=== PATIENT | male | born 1985 | race African-American/Black ===

== ENCOUNTER 2017-04-01 03:23 | Emergency (ER) | payer SELFPAY ==
--- NOTE | 2017-04-01 03:30 | ER Document Report ---
ED Wound <STEVE ODELL - Last Filed: 04/01/17 04:27> - General Mode of Arrival: Medic Information source: Patient, Law Enforcement - with IVC paperwork - HPI Patient complains to provider of: Laceration Occurred: Just prior to arrival Onset/Duration: Sudden Capillary refill: < 3 seconds Sensations intact: Yes Distal pulses present: Yes <DEVENDRA LYNN - Last Filed: 04/01/17 05:05> <TITUS KEY - Last Filed: 04/02/17 12:54> <DINA MAC - Last Filed: 04/02/17 13:14> - General Stated Complaint: IVC WITH PAPERS Notes: Patient is a 31-year-old male that presents to the emergency department today with complaints of a self-inflicted laceration to the left forearm. Patient does admit to EtOH usage tonight. Patient states that he was in an argument with his fiance and he cut himself with a pocket knife. Patient states that his mrnttn-dc-anw is living with him in his house and she is not helping to pay the bills which began an argument with his fiance. Patient denies any suicidal or homicidal ideation. Patient has never been diagnosed with psychiatric disorders in the past. (DEVENDRA LYNN) Past Medical History - General Information source: Patient - Social History Smoking Status: Never Smoker Cigarette use (# per day): No Frequency of alcohol use: Heavy Drug Abuse: None Lives with: Family Family History: Reviewed & Not Pertinent - Medical History Medical History: Negative Surgical Hx: Negative <DEVENDRA LYNN - Last Filed: 04/01/17 05:05> Review of Systems - Review of Systems Constitutional: No symptoms reported EENT: No symptoms reported Cardiovascular: No symptoms reported Respiratory: No symptoms reported Gastrointestinal: No symptoms reported Genitourinary: No symptoms reported Male Genitourinary: No symptoms reported Musculoskeletal: No symptoms reported Skin: See HPI, Other - laceration to left forearm Hematologic/Lymphatic: No symptoms reported Neurological/Psychological: No symptoms reported -: Yes All other systems reviewed and negative <DEVENDRA LYNN - Last Filed: 04/01/17 05:05> Physical Exam <STEVE ODELL - Last Filed: 04/01/17 04:27> <DEVENDAR LYNN - Last Filed: 04/01/17 05:05> <TITUS KEY - Last Filed: 04/02/17 12:54> <DINA MAC - Last Filed: 04/02/17 13:14> - Vital signs Vitals: Temp Pulse Resp BP Pulse Ox 98.1 F 110 H 18 168/100 H 100 04/01/17 03:33 04/01/17 03:33 04/01/17 03:33 04/01/17 03:33 04/01/17 03:33 - Notes Notes: Physical Exam: General: Alert, appears well. HEENT: Normocephalic. Atraumatic. PERRLA. Extraocular movements intact. Oropharynx clear. Neck: Supple. Respiratory: No respiratory distress. Abdominal: Normal Inspection. No distension. Extremities: Moves all four extremities. Neurological: Cranial nerves II-XII grossly intact bilaterally. Normal cognition. AAOx4. Normal speech. Psychological: Agitated Skin: Moderately deep 12 cm laceration to left forearm, good digit movement distally. (DEVENDRA LYNN) Course <STEVE ODELL - Last Filed: 04/01/17 04:27> - Laboratory Result Diagrams: 04/01/17 04:20 04/01/17 04:20 <DEVENDRA LYNN - Last Filed: 04/01/17 05:05> - Laboratory Result Diagrams: 04/01/17 04:20 04/01/17 04:20 <TITUS KEY - Last Filed: 04/02/17 12:54> - Laboratory Result Diagrams: 04/01/17 04:20 04/01/17 04:20 <DINA MAC - Last Filed: 04/02/17 13:14> - Re-evaluation Re-evalutation: 04/01/17 04:08 Patient presents emergency department self-inflicted 5-1/2 inch laceration to his left upper extremity has been placed on papers by menstrual body by the police. States that he's been having difficulty with his gvubpm-iu-bpa who is living with him not paying any bills in his fiance got into an argument tonight he took out a pocket knife and sliced his left arm. The wkntii-cj-ujn called and the patient was taken into custody. He denies any history of suicide attempt or overdose substance abuse issues in the past she's not been diagnosed according to him with any psychiatric illnesses. Also does not a family history of psychiatric illness. On examination well-appearing nontoxic says he is not suicidal or homicidal now. His normal stable mental examination with normal physical examination. 5 1/2 inch laceration to the left forearm repaired with 26interrupted sutures complex repair. Antibiotic ointments tetanus and dressing was applied. (STEVE ODELL) - Vital Signs Vital signs: Temp Pulse Resp BP Pulse Ox 97.8 F 60 16 142/87 H 98 04/02/17 07:54 04/02/17 07:54 04/02/17 07:54 04/02/17 07:54 04/02/17 07:54 - Laboratory Laboratory results interpreted by me: 04/01/17 04/01/17 04/01/17 04:20 04:20 05:15 RBC 5.93 H RDW 14.6 H Sodium 149.3 H Chloride 111 H Carbon Dioxide 19 L Glucose 115 H Direct Bilirubin 0.5 H Total Protein 8.3 H Urine Blood SMALL H Salicylates < 1.0 L Acetaminophen < 10 L - EKG Interpretation by Me Additional EKG results interpreted by me: 04/01/17 04:27 EKG interpreted by myself to reveal sinus rhythm at [address] elevation probably early repolarization. I don't appreciate any acute ST segment elevation or depression and is of concern currently. (STEVE ODELL) Procedures - Laceration/Wound Repair Left Upper Arm Time completed: 04:00 Wound's Depth, Shape: Into muscle, Linear Laceration pre-procedure: Sterile drapes applied, Shur-Clens applied Anesthetic type: 1% Lidocaine w/epi Wound explored: Clean, No foreign body removed Irrigated w/ Saline (mLs): 1,000 Wound Repaired With: Sutures Suture Size/Type: 5:0, Ethilon Number of Sutures: 26 Layer Closure?: Yes Post-procedure wound care: Sterile dressing applied Post-procedure NV exam normal: Yes Complications: No <STEVE ODELL - Last Filed: 04/01/17 04:27> Discharge <STEVE ODELL - Last Filed: 04/01/17 04:27> <DEVENDRA LYNN - Last Filed: 04/01/17 05:05> <TITUS KEY - Last Filed: 04/02/17 12:54> <DINA MAC - Last Filed: 04/02/17 13:14> - Discharge Clinical Impression: Suicidal ideation, self-inflicted laceration, 5-1/2 inch laceration with repair Condition: Stable Disposition: HOME, SELF-CARE Additional Instructions: CHRONIC ALCOHOLISM and ALCOHOL ABUSE: Your evaluation reveals evidence of chronic alcoholism, an addiction to alcohol. The tendency to alcoholism may be inherited. Chronic use of alcohol weakens muscles, causes fatty deposits in the liver , damages the stomach, makes you more prone to infections, and can cause defects in unborn children. In the long run, brain atrophy and cirrhosis of the liver result. You are also at greater risk for certain types of cancer, such as cancer of the mouth, throat, stomach, and liver. Counselling services are available to help you. In-hospital treatment programs often help. Support groups such as Alcoholics Anonymous can be very useful in beating this addiction. Your physician can make a referral for you. As alcoholics often are prone to other addictions, you should discuss your use of any other medications with the doctor. DEPRESSION: Your evaluation reveals that you have mental depression. While symptoms may be vague, they often include disturbance of sleep, fatigue, loss of appetite , and general loss of interest in life. While depression may be a side effect of drugs, or a reaction to a major change in your life, many cases have no known cause. If depression is acute, and related to a major loss in your life, you can expect it to clear completely with time. If you have been depressed a long time , are prone to repeated bouts of depression or low mood, or have been thinking of suicide, get help. Depression can be treated with anti-depressant medication and counselling. Long-term depression will often take a few weeks to clear, even with appropriate medication. Follow-up care is important. SUICIDAL IDEATION: Suicidal ideation is a common medical term for thoughts about suicide, which may be as detailed as a formulated plan, without the suicidal act itself. Although most people who undergo suicidal ideation do not commit suicide, some go on to make suicide attempts. The range of suicidal ideation varies greatly from fleeting to detailed planning, role playing, and unsuccessful attempts. While thoughts about suicide are common, most people do not carry out serious actions to commit suicide. Based upon your evaluation and discussion with you, we do not believe you are currently at risk to act upon your thoughts of suicide. You have agreed to return to the Emergency Department, at any time , if you feel inclined to act upon your suicidal thoughts. FOLLOW-UP CARE: You have been referred to [facility] to receive an evaluation for substance abuse and treatment within the next two days. If you experience worsening or a significant change in your symptoms, notify the physician immediately or return to the Emergency Department at any time for re-evaluation. Referrals: [facility] [Outside] - 04/11/17 Scribe Attestation: 04/01/17 04:10 I personally performed the services described in the documentation reviewed the documentation recorded by my scribe in my presence and it accurately and completely records my words and actions (STEVE ODELL) Scribe Documentation - Scribe Written by Carl:: carl Yañez, [id number] 04/01/2017 acting as scribe for :: Donavan <DEVENDRA LYNN - Last Filed: 04/01/17 05:05>
[2017-04-01] MEDS ORDERED: TETANUS IMMUNE GLOBULIN INJ/PF 250 UNIT DISP.SYRIN IM ONE (03:38)
[2017-04-01] MEDS ORDERED: LIDOCAINE 1%/EPINEPHRINE INJ 20 ML VIAL INJ ONE (03:38)
[2017-04-01] MEDS ORDERED: NICOTINE 21 MG/24 HR PATCH.TD24 TD ONE (04:10)
[2017-04-01] MEDS ORDERED: CEPHALEXIN 500 MG CAPSULE PO ONE ×2 (04:25→22:54)
[2017-04-01 04:32] LABS: ABSOLUTE LYMPHOCYTES (AUTO) 1.3 10^3/uL (0.5-4.7); ABSOLUTE MONOCYTES (AUTO) 0.3 10^3/uL (0.1-1.4); ABSOLUTE NEUT (AUTO) 4.3 10^3/uL (1.7-8.2); BASOPHILS % (AUTO) 0.6 % (0-2); EOSINOPHILS % (AUTO) 0.3 % (0-6); HEMATOCRIT 50.9 % (37.9-51.0); HEMOGLOBIN 16.9 g/dL (13.5-17.0); HGB HCT DIFFERENCE -0.2; LYMPHOCYTES % (AUTO) 22.2 % (13-45); MEAN CORPUSCULAR HEMOGLOBIN 28.5 pg (27.0-33.4); MEAN CORPUSCULAR HGB CONC 33.3 g/dL (32.0-36.0); MEAN CORPUSCULAR VOLUME 86 fl (80-97); MONOCYTES % (AUTO) 5.5 % (3-13); RED BLOOD COUNT 5.93 10^6/uL (4.35-5.55); RED CELL DISTRIBUTION WIDTH 14.6 % (11.5-14.0); SEGMENTED NEUTROPHILS % (AUTO) 71.4 % (42-78)
[2017-04-01 04:53] LABS: ALANINE AMINOTRANSFERASE 32 U/L (21-72); ALBUMIN 4.6 g/dL (3.5-5.0); ALCOHOL 196 mg/dL (NONE DETECTED); ALKALINE PHOSPHATASE 80 U/L (38-126); ANION GAP 19 (5-19); ASPARTATE AMINO TRANSFERASE 22 U/L (17-59); BILIRUBIN,DIRECT 0.5 mg/dL (0.0-0.4); BILIRUBIN,TOTAL 0.7 mg/dL (0.2-1.3); BLOOD UREA NITROGEN 8 mg/dL (7-20); CALCIUM 9.7 mg/dL (8.4-10.2); CARBON DIOXIDE 19 mmol/L (22-30); CHLORIDE 111 mmol/L (98-107); CREATININE RESULT 0.85 mg/dL (0.52-1.25); GLUCOSE 115 mg/dL (75-110); POTASSIUM 4.5 mmol/L (3.6-5.0); SODIUM 149.3 mmol/L (137-145); TOTAL PROTEIN 8.3 g/dL (6.3-8.2)
[2017-04-01 05:32] LABS: APPEARANCE,URINE CLEAR; BILIRUBIN,URINE NEGATIVE (NEGATIVE); GLUCOSE, URINE NEGATIVE (NEGATIVE); KETONES,URINE NEGATIVE (NEGATIVE); LEUKOCYTE ESTERASE,URINE NEGATIVE (NEGATIVE); NITRITE,URINE NEGATIVE (NEGATIVE); PROTEIN,URINE NEGATIVE (NEGATIVE); URINE SPECIFIC GRAVITY 1.004; UROBILINOGEN,URINE NEGATIVE mg/dL (<2.0)
[2017-04-01] MEDS ORDERED: ACETAMINOPHEN 325 MG TABLET PO ONE (05:39)
[2017-04-01 05:45] LABS: URINE BARBITURATES SCREEN NEGATIVE; URINE METHADONE SCREEN NEGATIVE; URINE OPIATES LOW NEGATIVE; URINE PHENCYCLIDINE SCREEN NEGATIVE
--- NOTE | 2017-04-01 10:01 | ER Document Report ---
Doctor's Note Notes: 04/01/17 10:01 As the rounding physician this AM, I assessed the patient's labs, vitals, and records. No concerning findings this morning. Patient denies any acute complaints. He is cleared for disposition by psychiatry
[2017-04-02] MEDS ORDERED: ACETAMINOPHEN 325 MG TABLET PO ONE (00:10)
--- NOTE | 2017-04-02 10:59 | ER Document Report ---
Doctor's Note Notes: 04/02/17 10:59 As the rounding physician this AM, I assessed the patient's labs, vitals, and records. No concerning findings this morning. Patient denies any acute complaints. Patient is cleared for disposition by psychiatry
--- NOTE | 2017-04-02 11:51 | PSYCHOLOGICAL NOTE ---
Psych Note - Psych Note Psych Note: Patient is a 31-year-old male that presents to the emergency department today with complaints of a self-inflicted laceration to the left forearm. Patient does admit to EtOH usage tonight. Patient states that he was in an argument with his fiance and he cut himself with a pocket knife. Patient states that his evheth-ho-ihb is living with him in his house and she is not helping to pay the bills which began an argument with his fiance. Patient denies any suicidal or homicidal ideation. Patient has never been diagnosed with psychiatric disorders in the past. Patient states that he was only trying to get his girlfriend's attention. Clinician notes the patient presented with 5 1/2 inch linear, into muscle, laceration to the left forearm that required 26 sutures. Patient denies attempting suicide. He states that he was drinking and had three 40oz. beers. He states the amount is not a lot for him, prior to he would drink a 24 pk of 16oz beers daily but he has cut it back to drinking only 1 or 2 40oz a week. He stated that he has been trying to cut back. Patient denies any history of mental health and disclosed concern that he will lose his job if has to state in the ED. Patient is alert and orientated to person, place, time and circumstance. Mood is euthymic with congruent affect. Patient denies suicidal and homicidal ideation. Clinician notes patient's laceration on his forearm was linear and into the muscle. Patient denies auditory and visual hallucinations; patient is not demonstrating behaviour what would be congruent to responding to internal stimuli. No delusions are noted. Thought process is organized and linear. Eye contact was well maintained. Intellectual abilities appear to be within average range. Attention and concentration is good. Insight, judgment, and impulse control is poor. 305.00 (F10.10) Alcohol use disorder; mild V6 1.10 (Z63.0) relationship distress with intimate partner Impression\plan: Patient is recommended to continue under IVC. Patient denies suicidal ideation stating that he was only attempting to get his girlfriend's attention. Clinician notes patient's laceration on his forearm was linear and into the muscle. Patient reports history of alcohol abuse and is attempting to cut back however was drinking at the time of this event. Patient does not have outpatient services in place and is currently questionable if he has a support system. Patient will be reevaluated. Dr. Aguirre was consulted on the care and management of this patient; attending physician is in agreement with recommendations and disposition.
--- NOTE | 2017-04-02 12:54 | PSYCHOLOGICAL NOTE ---
Psych Note - Psych Note Psych Note: Patient is a 31-year-old male that presents to the emergency department today with complaints of a self-inflicted laceration to the left forearm. Patient does admit to EtOH usage tonight. Patient states that he was in an argument with his fiance and he cut himself with a pocket knife. Patient states that his etkiqn-sn-vxd is living with him in his house and she is not helping to pay the bills which began an argument with his fiance. Patient denies any suicidal or homicidal ideation. Patient has never been diagnosed with psychiatric disorders in the past. Patient disclosed that he is originally from [place]. 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 Patient continued to disclose that he is not suicidal and again readdressed his cut on his arm was result of attempting to get his girlfriend's attention. Patient does admit to alcohol abuse in currently attempting to cut back. He states that he drinks and the evenings to help him get to sleep. Since he has been cutting back on alcohol he has been using marijuana to assist in going to sleep. Patient disclosed that he is willing to take medications, and attend any outpatient services that are recommended. He continued disclosed that he was very stressed because his girlfriend had her mother sister and brother living in their home and he was supporting everyone. He continued to state that he was just notified that the landlord wants the girlfriends family to move out because they are not on the lease. Patient's aunt, Pallavi Tinoco, was bedside with patient. She disclosed that she drove down from [facility]. She continue disclosed that the patient has a strong family support system and is surprised he did not reach out. When patient disclosed his marijuana use clinician notes patient's aunt was disapproving stating that the family will need to address this. Clinician spoke with patient's significant other Harper Parks, , she disclosed that the patient has a history of drinking. She continue disclosed that yesterday she was at a friend's home who is actually Pretty friend of hers that they are still friends and she feels that the patient was jealous. She continued to discuss the patient appeared to be intoxicated and when questioned the patient on how much she drank he became "stubborn and belligerent" so she attempted to end the conversation. She stated that when she attempted to walk away the patient stated "if you won't talk to me I will just and this now." She states the patient and her are not in a committed relationship they are currently working on it and are living together. She continues state that his drinking has been a problem in the past but he has been working on in is getting better. She agrees that she would be very willing to assist the patient in continuing outpatient services to include ensuring patient follows through with recommendations. She disclosed patient has "threatened" suicide in the past twice when they have been "on breaks" in the relationship and it is only when he is drunk. She states "if he was sober this never would've happened." Patient is alert and orientated to person, place, time and circumstance. Mood is euthymic with congruent affect; patient is noted to be smiling. Patient denies suicidal and homicidal ideation. Clinician notes patient's laceration on his forearm was linear and into the muscle. Patient denies auditory and visual hallucinations; patient is not demonstrating behaviour what would be congruent to responding to internal stimuli. No delusions are noted. Thought process is organized and linear. Conversational speech is within normal rate tone and prosody. Eye contact was well maintained. Intellectual abilities appear to be within average range. Attention and concentration is good. Insight, judgment, and impulse control is poor. 305.00 (F10.10) Alcohol use disorder; mild V6 1.10 (Z63.0) relationship distress with intimate partner Impression\\plan: Patient is recommended for rescind of IVC is considered psychiatrically cleared for discharge. Patient adamantly denies suicidal ideation. Patient does not meet IVC criteria per [place] GS 122C. clinician notes previously it was unclear if patient had any support network. Patient has strong family support identified by patient's aunt in addition to his significant other who lives in the home. Patient's significant other states she is willing to be part of discharge plan to include assisting the patient in following through with outpatient services and recommendations. Patient is recommended to follow-up with [facility] to address his alcohol and marijuana use. Dr. Aguirre was consulted on the care and management of this patient; attending physician is in agreement with recommendations and disposition.
[2017-04-02 13:26] VITALS: BP 150/94
== END 2017-04-02 13:46 | disposition home or self-care (01) ==
LOC: ER 03:23
PROC: 0HQEXZZ Repair Left Lower Arm Skin, External Approach (ICD-10-PCS; principal; 2017-04-01)
DX: S51.812A Laceration without foreign body of left forearm, initial encounter (principal); R45.851 Suicidal ideations; F10.10 Alcohol abuse, uncomplicated; Z23 Encounter for immunization; X78.1XXA Intentional self-harm by knife, initial encounter; Z63.0 Problems in relationship with spouse or partner
CPT/HCPCS: 99285; 90471; 36415; 80307 ×4; 85025; 80053; 81001; 13121; L0172; J1670; J3490

== ENCOUNTER 2018-05-19 00:35 | Emergency (ER) | payer SELFPAY ==
[2018-05-19 02:24] LABS: ABSOLUTE BASOPHILS # (AUTO) 0.1 10^3/uL (0.0-0.2); ABSOLUTE EOSINOPHILS # (AUTO) 0.1 10^3/uL (0.0-0.6); ABSOLUTE LYMPHOCYTES (AUTO) 2.3 10^3/uL (0.5-4.7); ABSOLUTE MONOCYTES (AUTO) 0.5 10^3/uL (0.1-1.4); ABSOLUTE NEUT (AUTO) 2.4 10^3/uL (1.7-8.2); BASOPHILS % (AUTO) 1.1 % (0-2); EOSINOPHILS % (AUTO) 1.9 % (0-6); HEMATOCRIT 50.1 % (37.9-51.0); HEMOGLOBIN 16.7 g/dL (13.5-17.0); LYMPHOCYTES % (AUTO) 43.1 % (13-45); MEAN CORPUSCULAR HEMOGLOBIN 28.8 pg (27.0-33.4); MEAN CORPUSCULAR HGB CONC 33.2 g/dL (32.0-36.0); MEAN CORPUSCULAR VOLUME 87 fl (80-97); PLATELET COUNT 210 10^3/uL (150-450); RED BLOOD COUNT 5.77 10^6/uL (4.35-5.55); RED CELL DISTRIBUTION WIDTH 14.9 % (11.5-14.0); SEGMENTED NEUTROPHILS % (AUTO) 44.9 % (42-78); TOTAL CELLS COUNTED % (AUTO) 100 %; WHITE BLOOD COUNT 5.4 10^3/uL (4.0-10.5)
[2018-05-19 02:28] LABS: ANION GAP 14 (5-19); BLOOD UREA NITROGEN 11 mg/dL (7-20); CALCIUM 9.8 mg/dL (8.4-10.2); CARBON DIOXIDE 29 mmol/L (22-30); CHLORIDE 108 mmol/L (98-107); GLUCOSE 103 mg/dL (75-110); POTASSIUM 4.8 mmol/L (3.6-5.0); SODIUM 150.5 mmol/L (137-145)
--- NOTE | 2018-05-19 02:55 | ER Document Report ---
ED General - General Chief Complaint: Chest Pain Stated Complaint: CHEST PAIN Time Seen by Provider: 05/19/18 01:43 TRAVEL OUTSIDE OF THE [place] IN LAST 30 DAYS: No - HPI Patient complains to provider of: Chest pain syncope Notes: Patient coming in for evaluation of chest pain syncope. Patient states he passed out twice today having chest pain around 6:00. No chest pain associated with syncopal episodes patient states he was in the [facility] and had multiple episodes found out to have PVCs and was discharged from the [facility] for this. Patient states not follow-up with primary care physician since that time. Patient states he has a flap in his heart causing these episodes. Patient states he has not been evaluated for any further treatment for this flap. Upon my initial evaluation patient is on phone and takes multiple readings for him to hang up the phone. Denies fevers chills nausea vomiting diarrhea denies any chest pain at this time. Denies any trauma. - Related Data Allergies/Adverse Reactions: No Known Allergies Allergy (Unverified 04/01/17 07:37) Past Medical History - Social History Smoking Status: Unknown if Ever Smoked Family History: Reviewed & Not Pertinent Patient has suicidal ideation: No Patient has homicidal ideation: No Renal/ Medical History: Denies: Hx Peritoneal Dialysis Past Surgical History: Reports: Hx Orthopedic Surgery - rotator cuff/ knee - Immunizations Hx Diphtheria, Pertussis, Tetanus Vaccination: Yes - 2003 Review of Systems - Review of Systems Constitutional: No symptoms reported EENT: No symptoms reported Cardiovascular: Chest pain, Syncope Respiratory: No symptoms reported Gastrointestinal: No symptoms reported Genitourinary: No symptoms reported Male Genitourinary: No symptoms reported Musculoskeletal: No symptoms reported Skin: No symptoms reported Hematologic/Lymphatic: No symptoms reported Neurological/Psychological: No symptoms reported Physical Exam - Vital signs Vitals: Temp Pulse Resp BP Pulse Ox 98.5 F 88 18 136/66 H 98 05/19/18 00:56 05/19/18 00:56 05/19/18 00:56 05/19/18 00:56 05/19/18 00:56 Interpretation: Normal - General General appearance: Appears well, Alert - HEENT Head: Normocephalic, Atraumatic Eyes: Normal Pupils: PERRL - Respiratory Respiratory status: No respiratory distress Chest status: Nontender Breath sounds: Normal Chest palpation: Normal - Cardiovascular Rhythm: Regular Heart sounds: Normal auscultation Murmur: No - Abdominal Inspection: Normal Distension: No distension Bowel sounds: Normal Tenderness: Nontender Organomegaly: No organomegaly - Back Back: Normal, Nontender - Extremities General upper extremity: Normal inspection, Nontender, Normal color, Normal ROM , Normal temperature General lower extremity: Normal inspection, Nontender, Normal color, Normal ROM , Normal temperature, Normal weight bearing. No: Precious's sign - Neurological Neuro grossly intact: Yes Cognition: Normal Orientation: AAOx4 Arnie Coma Scale Eye Opening: Spontaneous [place] Coma Scale Verbal: Oriented [place] Coma Scale Motor: Obeys Commands Arnie Coma Scale Total: 15 Speech: Normal Motor strength normal: LUE, RUE, LLE, RLE Sensory: Normal - Psychological Associated symptoms: Normal affect, Normal mood - Skin Skin Temperature: Warm Skin Moisture: Dry Skin Color: Normal Course - Re-evaluation Re-evalutation: 05/19/18 04:33 Upon patient's initial evaluation requesting to leave and did splinted the patient is EKG at this time does look normal would recommend chest x-ray laboratory studies patient does agree that this however was found outside the ER multiple times upon review your laboratory studies that were negative patient again is requesting leave this time he was also on the phone I explained patient his results were normal and that he can follow-up with clinics provided - Vital Signs Vital signs: Temp Pulse Resp BP Pulse Ox 98.6 F 100 16 140/62 H 99 05/19/18 03:07 05/19/18 03:07 05/19/18 03:07 05/19/18 03:07 05/19/18 03:07 - Laboratory Result Diagrams: 05/19/18 01:55 05/19/18 01:55 Laboratory results interpreted by me: 05/19/18 05/19/18 01:55 01:55 RBC 5.77 H RDW 14.9 H Sodium 150.5 H Chloride 108 H Discharge - Discharge Clinical Impression: Chest pain of uncertain etiology, Dehydration Syncope Qualifiers: Syncope type: unspecified Qualified Code(s): R55 - Syncope and collapse Disposition: HOME, SELF-CARE Instructions: Chest Wall Pain ([facility]), Chest Pain of Unclear Cause ([facility]), Dehydration ([facility]), Syncopal Episode ([facility]) Additional Instructions: Follow-up with your primary care physician. Please make sure you drink plenty water to stay hydrated. Return to the ER for any concerning issues.
[2018-05-19 03:10] VITALS: BP 140/62
--- NOTE | 2018-05-19 03:10 | RADIOLOGY REPORT (SQ) ---
EXAM DESCRIPTION: XR CHEST 2 VIEWS COMPLETED DATE/TME: 05/19/2018 02:59 CLINICAL HISTORY: 32 years Male, cp COMPARISON: None. FINDINGS: Increased lung volume, clear parenchyma, normal cardiac silhouette, and intact bony thorax. IMPRESSION: No acute cardiopulmonary findings.
--- NOTE | 2018-05-19 08:17 | EKG REPORT ---
SEVERITY:- ABNORMAL ECG - SINUS RHYTHM ABNRM R PROG, CONSIDER ASMI OR LEAD PLACEMENT : Confirmed by: Alisa Lentz 19-May-2018 08:17:00
== END 2018-05-19 03:11 | disposition home or self-care (01) ==
LOC: ER 00:35
DX: R07.9 Chest pain, unspecified (principal); R55 Syncope and collapse; E86.0 Dehydration
CPT/HCPCS: 36415; 71046; 80048; 84484; 85025; 93005; 93010; 99285

== ENCOUNTER 2018-10-24 03:13 | Emergency (ER) | payer SELFPAY ==
[2018-10-24 03:19] VITALS: BP 143/84
[2018-10-24] MEDS ORDERED: IBUPROFEN 600 MG TABLET PO ONE (03:45)
[2018-10-24] MEDS ORDERED: ACETAMINOPHEN 325 MG TABLET PO ONE (03:45)
[2018-10-24] MEDS ORDERED: LIDOCAINE 5% (700 MG) TRANSDERMAL ADH..PATCH TP ONE (03:46)
--- NOTE | 2018-10-24 03:53 | ER Document Report ---
ED General - General Chief Complaint: Back Pain Stated Complaint: PAIN IN LOWER BACK AND RIGHT LEG Time Seen by Provider: 10/24/18 03:29 Notes: Patient is a 33-year-old male who presents emergency department with a chief complaint of back pain that radiates down his right leg. He said his pain started a week and half ago and for the past 2 days he has been having worsening pain. He describes his pain as a sharp pain that shoots down his right leg. He has had this pain before, but after 2 days the pain goes away. He has taken ibuprofen 800 mg earlier yesterday afternoon, but has had no relief. 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 He denies a history of IV drug abuse. TRAVEL OUTSIDE OF THE [place] IN LAST 30 DAYS: No - Related Data Allergies/Adverse Reactions: No Known Allergies Allergy (Unverified 04/01/17 07:37) Past Medical History - General Information source: Patient - Social History Smoking Status: Current Every Day Smoker Smoking Education Provided: Yes - >3 min Frequency of alcohol use: Occasional Drug Abuse: Marijuana Family History: Reviewed & Not Pertinent Renal/ Medical History: Denies: Hx Peritoneal Dialysis Past Surgical History: Reports: Hx Orthopedic Surgery - rotator cuff/ knee - Immunizations Hx Diphtheria, Pertussis, Tetanus Vaccination: Yes - 2003 Review of Systems - Review of Systems Notes: REVIEW OF SYSTEMS: CONSTITUTIONAL : Denies recent illness. Denies recent unintentional weight loss. Denies fever, chills, or sweats. EENT: Denies eye, ear, throat, or mouth pain, discharge, or symptoms. Denies nasal or sinus congestion. CARDIOVASCULAR: Denies chest pain. RESPIRATORY: Denies shortness of breath, cough, congestion, difficulty breathing , or wheezing. GASTROINTESTINAL: Denies nausea, vomiting, and diarrhea. Denies abdominal pain. Denies constipation. GENITOURINARY: Denies difficulty urinating, burning, blood in urine, urgency or frequency. MUSCULOSKELETAL: See HPI SKIN: Denies rash, itchiness, or lesions HEMATOLOGIC : Denies easy bruising or bleeding. LYMPHATIC: Denies swollen, painful, enlarged glands. NEUROLOGICAL: Denies no numbness or tingling denies weakness. Denies headache. Denies altered mental status. Denies alteration in speech. PSYCHIATRIC: Denies stress, anxiety, alteration in sleep patterns, or depression. All other systems reviewed and negative. Physical Exam - Vital signs Vitals: Temp Pulse Resp BP Pulse Ox 98.1 F 85 16 143/84 H 99 10/24/18 03:18 10/24/18 03:18 10/24/18 03:18 10/24/18 03:18 10/24/18 03:18 - Notes Notes: PHYSICAL EXAMINATION: GENERAL: Appears well, healthy, well-nourished, no acute distress. HEAD: Normocephalic, atraumatic. EYES: PERRL, conjunctiva normal, all extraocular movements intact, sclera nonicteric ENT: Moist mucous membranes. NECK: Supple, no noticeable swelling, redness, rash. Normal range of motion. LUNGS: Equal breath sounds bilaterally and clear to auscultation. No wheezes rales or rhonchi. CARDIOVASCULAR: S1-S2, regular rate, regular rhythm. Radial pulses 2+, normal. ABDOMEN: Normoactive bowel sounds. Soft, nontender, no guarding, no rebound tenderness, and no masses palpated. EXTREMITIES: Normal strength and range of motion, no pitting or edema. No cyanosis. NEUROLOGICAL: Moves all extremities upon command. Strength 5/5 in all extremities. PSYCH: Normal mood, normal affect. SKIN: Warm, dry. No rash, lesions, ulcerations noted. Normal skin turgor. MUSCULOSKELETAL: Tenderness to lower back and right buttock upon palpation. Course - Vital Signs Vital signs: Temp Pulse Resp BP Pulse Ox 98.1 F 85 16 143/84 H 99 10/24/18 03:18 10/24/18 03:18 10/24/18 03:18 10/24/18 03:18 10/24/18 03:18 Discharge - Discharge Clinical Impression: Low back pain Qualifiers: Chronicity: acute Back pain laterality: midline Sciatica presence: with sciatica Sciatica laterality: sciatica of right side Qualified Code(s): M54.41 - Lumbago with sciatica, right side Condition: Stable Disposition: HOME, SELF-CARE Additional Instructions: You have been seen in the emergency department for low back pain. The most likely cause of your back pain is sciatic nerve pain. You can take Tylenol 1000 mg and ibuprofen 600 mg every 6 hours as needed for the pain. You have been provided a prescription for lidocaine patches, that you can use as needed. You may place one patch to the affected area for 12 hours, then take the patch off for the next 12 hours. You may reapply the patch the next day. You may also buy Aspercreme with lidocaine [id number] and to use per box directions. I recommend using a foam roller to help with your sciatic nerve pain. If you have worsening back pain or feel your symptoms are getting worse, please return to the emergency department. Stretching Exercises for the Back The physician has recommended that you begin stretching exercises for your back. These are often used even while the back is painful. However, you should notify the physician if the activities seem to increase your pain. PELVIC TILT: Lie flat on your back with knees bent. Tighten your stomach and buttock muscles so it flattens your lower back against the floor. Hold 10 seconds. Repeat 10 times, twice daily. KNEE RAISE: Lying on the back with knees bent, raise one knee to your chest, then the other. Hold both knees against the chest 10 seconds, then lower one knee at a time. Repeat 10 times, twice daily. PARTIAL TRUNK RAISE: Lie face down, arms at your sides. Keeping your waist on the floor, use your arms raise your chest up. Support yourself on your elbows for 30 seconds. Repeat twice daily, increasing the time to two minutes as you recover. Prescriptions: Lidocaine [Lidoderm 5% (700 mg) Transdermal Patch] 1 patch TP DAILY PRN #6 adh..patch PRN Reason:
[2018-10-24] MEDS ORDERED: LIDOCAINE 5% (700 MG) TRANSDERMAL ADH..PATCH ONE (04:14)
== END 2018-10-24 05:05 | disposition home or self-care (01) ==
LOC: ER 03:13
DX: M54.41 Lumbago with sciatica, right side (principal); F17.200 Nicotine dependence, unspecified, uncomplicated
CPT/HCPCS: 99283

== ENCOUNTER 2018-10-27 05:10 | Emergency (ER) | payer SELFPAY ==
[2018-10-27] MEDS ORDERED: LIDOCAINE 5% (700 MG) TRANSDERMAL ADH..PATCH TP ONE (05:36)
[2018-10-27] MEDS ORDERED: KETOROLAC TROMETHAMINE 60 MG/2 ML SDV IM ONE (05:37)
--- NOTE | 2018-10-27 05:43 | ER Document Report ---
HPI - HPI Patient complains to provider of: Right buttocks pain moving to right leg Time Seen by Provider: 10/27/18 05:24 Pain Level: 5 Context: Patient is a 33-year-old male presenting to the emergency department complaining of right buttocks pain radiating to his right posterior lower leg. Patient states he was seen at this emergency room on Tuesday for the same pain. States he was diagnosed with sciatic nerve pain. States he was given Lidoderm patch which had somewhat relieved of the pain and he was given Motrin. States he has continued the Motrin at home but now feels as though the pain has gotten worse. Patient denies doing any of those stretches or exercises given to him by the provider who saw him on Tuesday. Patient states he was given a prescription for Lidoderm patches, states they are too expensive and he is unable to purchase them at the pharmacy. Past medical history: PVCs Medications: None Allergies: None Surgical history: None Patient denies IV drug use in the past or currently. Past Medical History - General Information source: Patient - Social History Smoking Status: Unknown if Ever Smoked Drug Abuse: None Lives with: Family Family History: Reviewed & Not Pertinent Renal/ Medical History: Denies: Hx Peritoneal Dialysis Past Surgical History: Reports: Hx Orthopedic Surgery - rotator cuff/ knee - Immunizations Hx Diphtheria, Pertussis, Tetanus Vaccination: Yes - 2003 Vertical Provider Document - CONSTITUTIONAL Agree With Documented VS: Yes Notes: GENERAL: Alert, interacts well. No acute distress. HEAD: Normocephalic, atraumatic. EYES: Pupils equal, round, and reactive to light. Extraocular movements intact. ENT: Oral mucosa moist, tongue midline. NECK: Full range of motion. Supple. Trachea midline. LUNGS: Clear to auscultation bilaterally, no wheezes, rales, or rhonchi. No respiratory distress. HEART: Regular rate and rhythm. No murmur ABDOMEN: Soft, non-tender. Non-distended. Bowel sounds present in all 4 quadrants. EXTREMITIES: Moves all 4 extremities spontaneously. No edema, normal radial and dorsalis pedis pulses bilaterally. No cyanosis. BACK: no cervical, thoracic, lumbar midline tenderness. No saddle anesthesia, normal distal neurovascular exam. Tenderness upon palpation right buttocks radiating to right posterior leg ending above the knee. 5 out of 5 strength all 4 extremities. PMS present and equal all 4 extremities. NEUROLOGICAL: Alert and oriented x3. Normal speech. cranial nerves II through XII grossly intact PSYCH: Normal affect, normal mood. SKIN: Warm, dry, normal turgor. No rashes or lesions noted. - INFECTION CONTROL TRAVEL OUTSIDE OF THE [place] IN LAST 30 DAYS: No Course - Re-evaluation Re-evalutation: 10/27/18 05:43 Patient [address] himself to the emergency room, will not give him Flexeril in the ER due to its sedating properties. Discussed with patient home treatments of Toradol and Flexeril. Discussed [id number] 4% Lidoderm patches. Discussed doing extensive stretching for the sciatic nerve pain. Patient states he is supposed to get insurance within the next month. Discussed with him the need to follow-up with orthopedics. No history of IV drug use No loss of bowel or bladder, no urinary retention. - Vital Signs Vital signs: Temp Pulse Resp BP Pulse Ox 98.6 F 103 H 18 144/92 H 100 10/27/18 05:15 10/27/18 05:15 10/27/18 05:15 10/27/18 05:15 10/27/18 05:15 Discharge - Discharge Clinical Impression: Right sciatic nerve pain Condition: Stable Disposition: HOME, SELF-CARE Instructions: Sciatica ([facility]) Additional Instructions: Stretching Exercises for the Back The physician has recommended that you begin stretching exercises for your back. These are often used even while the back is painful. However, you should notify the physician if the activities seem to increase your pain. PELVIC TILT: Lie flat on your back with knees bent. Tighten your stomach and buttock muscles so it flattens your lower back against the floor. Hold 10 seconds. Repeat 10 times, twice daily. KNEE RAISE: Lying on the back with knees bent, raise one knee to your chest, then the other. Hold both knees against the chest 10 seconds, then lower one knee at a time. Repeat 10 times, twice daily. PARTIAL TRUNK RAISE: Lie face down, arms at your sides. Keeping your waist on the floor, use your arms raise your chest up. Support yourself on your elbows for 30 seconds. Repeat twice daily, increasing the time to two minutes as you recover. Prescriptions: Ketorolac Tromethamine [Toradol 10 mg Tablet] 10 mg PO Q8HP PRN #24 tablet PRN Reason: Cyclobenzaprine HCl [Flexeril 10 mg Tablet] 10 mg PO TIDP PRN #15 tab PRN Reason:
[2018-10-27 06:01] VITALS: BP 137/77
== END 2018-10-27 06:01 | disposition home or self-care (01) ==
LOC: ER 05:10
DX: M54.31 Sciatica, right side (principal)
CPT/HCPCS: 99283; 96372; J1885

== ENCOUNTER 2018-11-09 16:27 | Emergency (ER) | payer SELFPAY ==
[2018-11-09 16:58] VITALS: BP 150/87
[2018-11-09] MEDS ORDERED: KETOROLAC TROMETHAMINE 60 MG/2 ML SDV IM ONE (17:27)
--- NOTE | 2018-11-09 17:28 | ER Document Report ---
ED General - General Chief Complaint: Chest Congestion Stated Complaint: FLU LIKE SYMPTOMS Time Seen by Provider: 11/09/18 17:22 Mode of Arrival: Ambulatory Information source: Patient Notes: Pt presented to the ED with complaints of flu and cold symptoms since today. Pt reports cough, chest congestion, pain with deep breaths and "heaviness and pressure in the chest." Pt breaths e/u. Pt A&0x4. Pt ambulatory with steady gait. Pt denies fever and chills. Chief complaint: Flulike symptoms History of complain:( obtained from----patient) 33 years old male presents for a general body aches and pain, cough vomited a few times this morning with yellow vomitus. Had one loose stool, sore throat, chest congestion, heaviness. This is going on since this morning. Onset: As above Duration: Gradual Severity: Mild to moderate Quality: Dull Context: Possible influenza Exacerbating factor and relieving factors: None REVIEW OF SYSTEMS: CONSTITUTIONAL : Denies fever, chills, or sweats. Denies recent illness. EENT: Denies eye, ear, throat, or mouth pain or symptoms. Denies nasal or sinus congestion or discharge. Denies throat, tongue, or mouth swelling or difficulty swallowing. CARDIOVASCULAR: Denies chest pain. Denies palpitations or racing or irregular heart beat. Denies ankle edema. RESPIRATORY: Denies cough, cold, or chest congestion. Denies shortness of breath, difficulty breathing, or wheezing. GASTROINTESTINAL: Denies distention. Denies nausea, vomiting, or diarrhea. Denies blood in vomitus, stools, or per rectum. Denies black, tarry stools. Denies constipation. GENITOURINARY: Denies difficulty urinating, painful urination, burning, frequency, blood in urine, or discharge. FEMALE GENITOURINARY: Denies vaginal bleeding, heavy or abnormal periods, irregular periods. Denies vaginal discharge or odor. MUSCULOSKELETAL: Denies back or neck pain or stiffness. Denies joint pain or swelling. SKIN: Denies rash, lesions or sores. HEMATOLOGIC : Denies easy bruising or bleeding. LYMPHATIC: Denies swollen, enlarged glands. NEUROLOGICAL: Denies confusion or altered mental status. Denies passing out or loss of consciousness. Denies dizziness or lightheadedness. Denies headache. Denies weakness or paralysis or loss of use of either side. Denies problems with gait or speech. Denies sensory loss, numbness, or tingling. Denies seizures. PSYCHIATRIC: Denies anxiety or stress. Denies depression, suicidal ideation, or homicidal ideation. ALL OTHER SYSTEMS REVIEWED AND NEGATIVE. PHYSICAL EXAMINATION: GENERAL: Well-appearing, well-nourished and in no acute distress. HEAD: Atraumatic, normocephalic. EYES: Pupils equal round and reactive to light, extraocular movements intact, conjunctiva are normal. ENT: Nares patent, oropharynx clear without exudates. Moist mucous membranes. NECK: Normal range of motion, supple without lymphadenopathy LUNGS: Breath sounds clear to auscultation bilaterally and equal. No wheezes rales or rhonchi. HEART: Regular rate and rhythm without murmurs ABDOMEN: Soft, nontender, nondistended abdomen. No guarding, no rebound. No masses appreciated. Examination of genitals-deferred Musculoskeletal: Normal range of motion, no pitting or edema. No cyanosis. NEUROLOGICAL: Cranial nerves grossly intact. Normal speech, normal gait. Normal sensory, motor exams PSYCH: Normal mood, normal affect. SKIN: Warm, Dry, normal turgor, no rashes or lesions noted. Dictation was performed using [employer] voice recognition software TRAVEL OUTSIDE OF THE [place] IN LAST 30 DAYS: No - HPI Notes: Dictated - Related Data Allergies/Adverse Reactions: No Known Allergies Allergy (Unverified 04/01/17 07:37) Past Medical History - Social History Smoking Status: Unknown if Ever Smoked Frequency of alcohol use: Occasional Lives with: Family Family History: Reviewed & Not Pertinent Patient has suicidal ideation: No Patient has homicidal ideation: No Renal/ Medical History: Denies: Hx Peritoneal Dialysis Past Surgical History: Reports: Hx Orthopedic Surgery - rotator cuff/ knee - Immunizations Hx Diphtheria, Pertussis, Tetanus Vaccination: Yes - 2003 Review of Systems - Review of Systems Notes: Dictated Physical Exam - Vital signs Vitals: Temp Pulse Resp BP Pulse Ox 99.0 F 95 16 150/87 H 98 11/09/18 16:54 11/09/18 16:54 11/09/18 16:54 11/09/18 16:54 11/09/18 16:54 - Notes Notes: Dictated Course - Vital Signs Vital signs: Temp Pulse Resp BP Pulse Ox 99.0 F 95 16 150/87 H 98 11/09/18 16:54 11/09/18 16:54 11/09/18 16:54 11/09/18 16:54 11/09/18 16:54 Discharge - Discharge Clinical Impression: Influenza A Condition: Fair Disposition: HOME, SELF-CARE Instructions: Influenza, Child ([facility]) Prescriptions: Baloxavir Marboxil [Xofluza] 80 mg PO DAILY #1 tablet
[2018-11-09 18:48] LABS: A TYPE INFLUENZA AG POSITIVE (NEGATIVE)
[2018-11-09 18:49] LABS: B INFLUENZA AG NEGATIVE (NEGATIVE)
--- NOTE | 2018-11-09 21:21 | EKG REPORT ---
SEVERITY:- NORMAL ECG - SINUS RHYTHM : Confirmed by: Basia Collins MD 09-Nov-2018 21:20:04
== END 2018-11-09 19:06 | disposition home or self-care (01) ==
LOC: ER 16:27
DX: J10.1 Influenza due to other identified influenza virus with other respiratory manifestations (principal); R05 Cough; R09.89 Other specified symptoms and signs involving the circulatory and respiratory systems; R07.89 Other chest pain; R11.10 Vomiting, unspecified; R19.4 Change in bowel habit
CPT/HCPCS: 93005; 99284; 96372; 87070; 87880; 87804; 93010; J1885